=== PATIENT | female | born 1960 | race Caucasian/White ===

== ENCOUNTER 2017-11-14 17:39 | Emergency (ER) | payer MEDICAID ==
[~2017-11-14] VITALS: Ht 157.5 cm; Wt 95.5 kg
[~2017-11-14 17:39] MED LIST: NOCURR
[2017-11-14] MEDS ORDERED: LISI-662 PO (17:50)
[2017-11-14] MEDS ORDERED: TRAM50TA4 PO (17:50)
[2017-11-14] MEDS ORDERED: HYDR25TA PO (17:50)
[2017-11-14 18:18] VITALS: BP 160/103
[2017-11-14] MEDS ORDERED: KETOROLAC TROMETHAMINE 10 MG TABLET PO ONE (18:30)
== END 2017-11-14 18:40 | disposition home or self-care (01) ==
LOC: EMS 17:41
DX: S83.92XA Sprain of unspecified site of left knee, initial encounter (principal); S83.91XA Sprain of unspecified site of right knee, initial encounter; X58.XXXA Exposure to other specified factors, initial encounter; Y93.01 Activity, walking, marching and hiking; Y92.89 Other specified places as the place of occurrence of the external cause; Y99.8 Other external cause status
CPT/HCPCS: 99282

== ENCOUNTER 2022-01-15 19:18 | Emergency (ER) | payer MEDICAID, OTHER ==
[~2022-01-15] VITALS: Ht 157.5 cm; Wt 90.9 kg
[~2022-01-15 19:18] MED LIST changes: +HYDR25TA2 PO; +LISI-894 PO; -NOCURR; +TRAM50TA4 PO
[2022-01-15 20:20] VITALS: BP 165/90
[2022-01-15 20:28] LABS: APPEARANCE,URINE HAZY (CLEAR); BILIRUBIN,URINE NEGATIVE (NEGATIVE); GLUCOSE, URINE (UA) 70-100 mg/dL (NEGATIVE); KETONES,URINE NEGATIVE (NEGATIVE); LEUKOCYTE ESTERASE ,URINE LARGE (NEGATIVE); NITRATE,URINE NEGATIVE (NEGATIVE); OCCULT BLOOD,URINE LARGE (NEGATIVE); PH,URINE 7.5 (5.0-8.0); PROTEIN,URINE 30-70 mg/dL (NEGATIVE); UROBILINOGEN,URINE <=1.0 mg/dL (<=1.0)
[2022-01-15] MEDS ORDERED: CefTRIAXone SODIUM 1 GM/VIAL IM ONE (20:30)
[2022-01-15] MEDS ORDERED: LIDOCAINE/PF 1% 2 ML VIAL IM ONE (20:30)
[2022-01-15 20:43] LABS: RBC,URINE 51-100 /HPF (0-2); WBC,URINE 26-50 /HPF (0-5)
[2022-01-15 20:44] LABS: BACTERIA,URINE Rare /HPF (None Seen); SQUAMOUS EPITHELIAL CELL,UR Few /LPF (None Seen)
[2022-01-15] MEDS ORDERED: SULF-261 PO (20:59)
== END 2022-01-15 21:20 | disposition home or self-care (01) ==
LOC: EMS 19:18
DX: N39.0 Urinary tract infection, site not specified (principal); K80.80 Other cholelithiasis without obstruction; I10 Essential (primary) hypertension; Z87.19 Personal history of other diseases of the digestive system; Z98.890 Other specified postprocedural states
CPT/HCPCS: 81001; 87086; 96372; 99283; J0696; J3490

== ENCOUNTER 2024-12-26 18:23 | Emergency (ER) | payer MEDICAID, OTHER ==
[~2024-12-26] VITALS: Ht 162.6 cm; Wt 81.8 kg
[~2024-12-26 18:23] MED LIST changes: +SULF-261 PO; -TRAM50TA4 PO; +TRAM50TA5 PO
[2024-12-26 18:29] VITALS: TEMP 97.3
[2024-12-26] MEDS: IBUPROFEN 600 MG TABLET PO ONE (22:38)
[2024-12-26] MEDS ORDERED: METF-1211 PO ×2 (23:05→23:11)
[2024-12-26] MEDS ORDERED: INSU100I26 SQ ×2 (23:05→23:11)
[2024-12-26] MEDS ORDERED: AMLO10TA55 PO (23:05)
[2024-12-26] MEDS ORDERED: LISI40TA9 PO (23:05)
[2024-12-26 23:06] LABS: GLUCOMETER DEV NAME(LOC) AHU.; GLUCOSE,POINT OF CARE 331 MG/DL (70-110)
[2024-12-26] MEDS: INSULIN REGULAR, HUMAN 100 UNITS/ML SQ ONE (23:08)
[2024-12-26] MEDS ORDERED: LISI-894 PO (23:11)
[2024-12-26] MEDS ORDERED: AMLO-258 PO (23:11)
[2024-12-26] MEDS: lisinopriL 10 MG TABLET PO ONE (23:17)
[2024-12-27 00:18] VITALS: BP 141/81; PULSE 71; RESP 18; O2SAT 97
== END 2024-12-27 01:31 | disposition home or self-care (01) ==
LOC: EMS 18:23
DX: M79.641 Pain in right hand (principal); E11.9 Type 2 diabetes mellitus without complications; I10 Essential (primary) hypertension; K21.9 Gastro-esophageal reflux disease without esophagitis; Z79.4 Long term (current) use of insulin; Z79.84 Long term (current) use of oral hypoglycemic drugs; Z79.899 Other long term (current) drug therapy
CPT/HCPCS: 99283; 82962 ×2; 73130; 29125; 96372; J1815

== ENCOUNTER 2025-03-31 13:24 | Inpatient (IN) | payer SELFPAY ==
[~2025-03-31] VITALS: Ht 157.5 cm; Wt 91.2 kg
[~2025-03-31 13:24] MED LIST changes: +AMLO-258 PO; +AMLO10TA55 PO; -HYDR25TA2 PO; +INSU100I26 SQ; +LISI-1024 PO; +METF-1211 PO; -SULF-261 PO; -TRAM50TA5 PO
[2025-03-31 13:53] LABS: PLATELET COUNT (AUTO) 170 K/uL (150-450); RED BLOOD CELL COUNT(AUTO) 4.58 MIL/uL (4.00-5.20); RED CELL DISTRIBUTION WIDTH 12.9 % (11.5-14.5); WHITE BLOOD COUNT (AUTO) 6.8 K/uL (4.5-11.0)
[2025-03-31 14:00] LABS: CALCIUM, TOTAL 8.5 mg/dL (8.8-10.5); CREATININE 0.71 mg/dL (0.60-1.30); GLOMERULAR FILTR. RATE CALC > 60 mL/min (>60); GLUCOSE,RANDOM 303 mg/dL (70-110); SODIUM SERUM 140 mmol/L (136-145); UREA NITROGEN, BLOOD 8 mg/dL (7-18)
[2025-03-31 14:10] LABS: TROPONIN I-HIGH SENSITIVITY 19 ng/L (<51)
[2025-03-31 14:32] LABS: PLATELET MORPHOLOGY COMMENT GIANT PLTS PRESENT
[2025-03-31] MEDS ORDERED: MAGNESIUM HYDROXIDE SUSPENSION 30 ML UDCUP PO PRN (16:30)
[2025-03-31] MEDS ORDERED: ZOLPIDEM TARTRATE 5 MG TABLET PO PRN (16:30)
[2025-03-31] MEDS ORDERED: DEXTROSE 50%-WATER 25 GM/50 ML SYRINGE IVP PRN (16:30)
[2025-03-31] MEDS: ASPIRIN 325 MG TABLET PO ONE (16:33)
[2025-03-31] MEDS: NITROGLYCERIN 2% (1 GM=INCH) OINTMENT PACKET TP ONE (16:34)
[2025-03-31 17:43] LABS: APPEARANCE,URINE CLEAR (CLEAR); GLUCOSE, URINE (UA) >=1000 mg/dL (NEGATIVE); LEUKOCYTE ESTERASE ,URINE NEGATIVE (NEGATIVE); NITRATE,URINE POSITIVE (NEGATIVE); OCCULT BLOOD,URINE NEGATIVE (NEGATIVE); SPECIFIC GRAVITIY, URINE 1.021 (1.003-1.030)
[2025-03-31 17:58] LABS: SQUAMOUS EPITHELIAL CELL,UR Few /LPF (None Seen)
[2025-03-31 18:33] LABS: TROPONIN I-HIGH SENSITIVITY 18 ng/L (<51)
[2025-03-31] MEDS: DOCUSATE SODIUM 100 MG CAPSULE PO SCH (21:16)
[2025-03-31] MEDS: ATORVASTATIN CALCIUM 20 MG TABLET PO SCH (21:16)
[2025-03-31] MEDS: INSULIN LISPRO 100 UNITS/ML SQ PRN (21:18)
[2025-03-31] MEDS: INSULIN GLARGINE,HUM.REC.ANLOG 100 UNITS/ML SQ SCH (21:18)
[2025-03-31 21:24] VITALS: BP 153/84; PULSE 67; RESP 20; TEMP 98.2; O2SAT 95
[2025-03-31] MEDS: HEPARIN SODIUM,PORCINE 5,000 UNITS/ML VIAL SQ SCH (23:54)
[2025-04-01] VITALS: BP 126/60; PULSE 65; RESP 18; TEMP 98.2; O2SAT 96
[2025-04-01 03:11] LABS: GLUCOMETER DEV NAME(LOC) 5N.1D; GLUCOSE,POINT OF CARE 215 MG/DL (70-110)
[2025-04-01 04:00] VITALS: BP 137/59; PULSE 60; RESP 20; TEMP 97.7; O2SAT 96
[2025-04-01 07:48] VITALS: BP 154/67; PULSE 81; RESP 16; TEMP 97.7; O2SAT 98
[2025-04-01] MEDS: ASPIRIN 81 MG CHEWABLE TABLET PO SCH (08:36)
[2025-04-01] MEDS: FAMOTIDINE 20 MG TABLET PO SCH (08:36)
[2025-04-01] MEDS ORDERED: ASPI-1450 PO (11:02)
[2025-04-01] MEDS ORDERED: PANT-31 PO (11:02)
[2025-04-01 11:40] LABS: GLUCOMETER DEV NAME(LOC) 5N.2C; GLUCOSE,POINT OF CARE 266 MG/DL (70-110)
[2025-04-01 11:41] LABS: GLUCOMETER DEV NAME(LOC) 5N.2C; GLUCOSE,POINT OF CARE 246 MG/DL (70-110)
[2025-04-01 11:48] VITALS: BP 141/58; PULSE 55; RESP 16; TEMP 98.2; O2SAT 95
[2025-04-01] MEDS: ACETAMINOPHEN 325 MG TABLET PO PRN (13:34)
== END 2025-04-01 14:40 | disposition home or self-care (01) | DRG 313 ==
LOC: EMS 13:25 → EDH 16:21 → 5N 20:51
PROVIDERS: ADMIT Internal Medicine; ATTEND Internal Medicine
DX: R07.89 Other chest pain (principal); E66.9 Obesity, unspecified; I10 Essential (primary) hypertension; K21.9 Gastro-esophageal reflux disease without esophagitis; E11.65 Type 2 diabetes mellitus with hyperglycemia; Z68.36 Body mass index [BMI] 36.0-36.9, adult; Z79.4 Long term (current) use of insulin; Z83.3 Family history of diabetes mellitus
CPT/HCPCS: 71045; 80048; 81001; 82962; 84484; 85025; 87077; 87086; 87186; 93005; 93306; 99285; J1644; J1815; 36415-L1; 36415-TC